=== PATIENT | male | born 1965 | race Caucasian/White ===

== ENCOUNTER 2018-04-03 01:27 | Inpatient (IN) | payer OTHER ==
[2018-04-03 02:14] LABS: Urine Blood NEGATIVE (NEG); Urine Glucose NEGATIVE (NEG); Urine Protein NEGATIVE (NEG)
[2018-04-03 02:16] LABS: Absolute Lymphocytes (CBC) 0.6 K/uL (0.7-4.9); Absolute Monocytes 1.3 K/uL (0.1-1.3); Absolute Neutrophil 11.4 K/uL (1.8-8.0); Basophils % 0.1 % (0-1.3); Eosinophils % 1.6 % (0-4.4); Hematocrit 43.4 % (39.6-49.0); Lymphocytes % 4.4 % (15.3-44.8); MCH 34.1 pg (27.0-35.0); MPV 8.5 fL (7.6-11.3); Monocytes % 9.5 % (3.3-12.3); RBC Red Blood Cell Count 4.38 M/uL (4.33-5.43)
[2018-04-03] MEDS ORDERED: KETOROLAC 30 MG/ML INJ ONE (02:22)
[2018-04-03 02:29] LABS: Urine Bacteria <20 /HPF (NONE SEEN); Urine Culture Reflex Order NOT NEEDED; Urine RBC NONE SEEN /HPF (NONE SEEN)
[2018-04-03 02:36] LABS: ALT/SGPT 32 U/L (12-78); AST/SGOT 17 U/L (15-37); Albumin 3.9 g/dL (3.4-5.0); Alkaline Phosphatase 51 U/L (45-117); BUN Blood Urea Nitrogen 18 mg/dL (7-18); Bicarbonate 29 mmol/L (21-32); Bilirubin Direct 0.2 mg/dL (0-0.2); Glucose Level 116 mg/dL (74-106); Lipase 84 U/L (73-393); Potassium 3.4 mmol/L (3.5-5.1); Protein, Total 7.1 g/dL (6.4-8.2); Sodium Level 139 mmol/L (136-145)
--- NOTE | 2018-04-03 03:19 | EDPHYS ---
Physician Documentation [facility] Name: Mike Kaufman Age: 52 yrs Sex: Male : 1965 Arrival Date: 04/03/2018 Time: 01:30 Bed 6 Private MD: Cassius Vega ED Physician Marc Rascon HPI: 04/03 03:12 This 52 yrs old Male presents to ER via Ambulatory with complaints of gs Abdominal Pain. 03:12 The patient presents with abdominal pain in the right upper quadrant. Onset: The gs symptoms/episode began/occurred acutely, 2 day(s) ago. Associated signs and symptoms: Pertinent positives: nausea, Pertinent negatives: vomiting. The symptoms are described as sharp. Modifying factors: The symptoms are alleviated by nothing, the symptoms are aggravated by nothing. Severity of pain: At its worst the pain was severe in the emergency department the pain has improved mildly. sweeny er dx colitis, gb dilated no sludge no stones. Historical: - Allergies: 01:49 No Known Allergies; bb - Home Meds: 01:49 Effexor Oral [Active]; valsartan oral oral [Active]; rosuvastatin oral oral [Active]; bb Synthroid Oral [Active]; testosterone [Active]; - PMHx: 01:49 Hypertension; Hypothyroidism; bb - PSHx: 01:49 gastric sleeve; Appendectomy; back surgery x 2; Knee surgery; wrist surgery; hand bb surgery x 2; - Immunization history:: Adult Immunizations up to date. - Social history:: Smoking status: Patient/guardian denies using tobacco, Patient uses alcohol, occasionally. Patient/guardian denies using street drugs. - Ebola Screening: : No symptoms or risks identified at this time. ROS: 03:12 All other systems are negative. gs 03:12 Cardiovascular: Negative for chest pain. gs 03:12 Respiratory: Negative for pleurisy, shortness of breath. Exam: 03:12 Head/Face: Normocephalic, atraumatic. Eyes: Pupils equal round and reactive to light, gs extra-ocular motions intact. Lids and lashes normal. Conjunctiva and sclera are non-icteric and not injected. Cornea within normal limits. Periorbital areas with no swelling, redness, or edema. ENT: Nares patent. No nasal discharge, no septal abnormalities noted. Tympanic membranes are normal and external auditory canals are clear. Oropharynx with no redness, swelling, or masses, exudates, or evidence of obstruction, uvula midline. Mucous membranes moist. Neck: Trachea midline, no thyromegaly or masses palpated, and no cervical lymphadenopathy. Supple, full range of motion without nuchal rigidity, or vertebral point tenderness. No Meningismus. Chest/axilla: Normal chest wall appearance and motion. Nontender with no deformity. No lesions are appreciated. Cardiovascular: Regular rate and rhythm with a normal S1 and S2. No gallops, murmurs, or rubs. Normal PMI, no JVD. No pulse deficits. Respiratory: Lungs have equal breath sounds bilaterally, clear to auscultation and percussion. No rales, rhonchi or wheezes noted. No increased work of breathing, no retractions or nasal flaring. Back: No spinal tenderness. No costovertebral tenderness. Full range of motion. Skin: Warm, dry with normal turgor. Normal color with no rashes, no lesions, and no evidence of cellulitis. MS/ Extremity: Pulses equal, no cyanosis. Neurovascular intact. Full, normal range of motion. Neuro: Awake and alert, GCS 15, oriented to person, place, time, and situation. Cranial nerves II-XII grossly intact. Motor strength 5/5 in all extremities. Sensory grossly intact. Cerebellar exam normal. Normal gait. 03:12 Constitutional: The patient appears alert, awake, uncomfortable. 03:12 Abdomen/GI: Palpation: moderate abdominal tenderness, in the epigastric area and right upper quadrant. 03:25 ECG was reviewed by the Attending Physician. Vital Signs: 01:49 BP 159 / 93; Pulse 63; Resp 18 S; Temp 98.5(O); Pulse Ox 97% on R/A; Weight 102.06 kg bb (R); Height 5 ft. 11 in. (180.34 cm) (R); Pain 8/10; 03:15 BP 120 / 72; Pulse 56; Resp 18; Pulse Ox 94% on R/A; lp1 04:15 BP 124 / 83; Pulse 56; Resp 18; Pulse Ox 99% on R/A; Pain 1/10; lp1 01:49 Body Mass Index 31.38 (102.06 kg, 180.34 cm) MDM: 01:53 Patient medically screened. 03:12 Differential diagnosis: cholecystitis, gastritis, non-specific abd pain, pancreatitis. Data reviewed: vital signs, nurses notes. Response to treatment: the patient's symptoms have markedly improved after treatment, and as a result, I will admit patient, per pt request as pain has been intractable. 04/03 01:58 Order name: Basic Metabolic Panel; Complete Time: 03:10 04/03 01:58 Order name: CBC with Diff; Complete Time: 02:24 04/03 01:58 Order name: Hepatic Function; Complete Time: 03:10 04/03 01:58 Order name: Lipase; Complete Time: 03:10 04/03 01:58 Order name: Urine Microscopic Only; Complete Time: 03:10 04/03 02:11 Order name: Urine Dipstick--Ancillary (enter results) pa 04/03 01:58 Order name: IV Saline Lock; Complete Time: 02:07 04/03 01:58 Order name: Labs collected and sent; Complete Time: 02:07 04/03 02:12 Order name: Urine Dipstick-Ancillary; Complete Time: 02:24 [facility] 04/03 02:33 Order name: EKG; Complete Time: 02:34 04/03 03:23 Order name: CONS Physician Consult [facility] 04/03 03:23 Order name: Hepatobiliary System W/ Ph [facility] 04/03 03:23 Order name: Abdomen Exam Limited [facility] 04/03 01:58 Order name: Urine Dipstick-Ancillary (obtain specimen); Complete Time: 02:07 04/03 02:33 Order name: EKG - Nurse/Tech; Complete Time: 02:57 EC:25 Rate is 59 beats/min. Rhythm is regular. AR interval is normal. No Q waves. T waves are gs Normal. No ST changes noted. Clinical impression: Sinus bradycardia. Interpreted by me. Administered Medications: 02:23 Drug: TORadol 15 mg Route: IVP; Site: left forearm; lp1 03:22 Follow up: Response: Pain is decreased lp1 Disposition: 04/03/18 03:18 Hospitalization ordered by Marcello Fitzpatrick for Observation. Preliminary diagnosis is Right upper quadrant abdominal tenderness. - Bed requested for Telemetry/MedSurg (observation). - Status is Observation. lp1 - Condition is Stable. - Problem is new. - Symptoms have improved. UTI on Admission? No Signatures: Dispatcher [employer] EDMS Esperanza Hopkins RN RN Dagmar Kramer, RN RN Drea Modi, KENIA RN lp1 Marc Rascon MD MD gs Corrections: (The following items were deleted from the chart) 04:03 03:18 Hospitalization Ordered by Marcello Fitzpatrick MD for Observation. Preliminary mw diagnosis is Right upper quadrant abdominal tenderness. Bed requested for Telemetry/MedSurg (observation). Status is Observation. Condition is Stable. Problem is new. Symptoms have improved. UTI on Admission? No. 04:32 04:03 04/03/2018 03:18 Hospitalization Ordered by Marcello Fitzpatrick MD for Observation. lp1 Preliminary diagnosis is Right upper quadrant abdominal tenderness. Bed requested for Telemetry/MedSurg (observation). Status is Observation. Condition is Stable. Problem is new. Symptoms have improved. UTI on Admission? No.
--- NOTE | 2018-04-03 03:19 | ER ---
Nurse's Notes [facility] Name: Mike Kaufman Age: 52 yrs Sex: Male : 1965 Arrival Date: 04/03/2018 Time: 01:30 Bed 6 Private MD: Cassius Vega Diagnosis: Right upper quadrant abdominal tenderness Presentation: 04/03 01:43 Presenting complaint: Patient states: he was seen at [place] ED yesterday and diagnosed bb with a "dilated" gallbladder and told to f/u with a surgeon but the pain is getting worse he cannot get comfortable he has had 3 episodes of this pain in the last 6 weeks. Transition of care: patient was not received from another setting of care. Onset of symptoms was February 2018. Risk Assessment: Do you want to hurt yourself or someone else? Patient reports no desire to harm self or others. Initial Sepsis Screen: Does the patient meet any 2 criteria? No. Patient's initial sepsis screen is negative. Does the patient have a suspected source of infection? No. Patient's initial sepsis screen is negative. Care prior to arrival: None. 01:43 Method Of Arrival: Ambulatory bb 01:43 Acuity: JIAN 3 bb Historical: - Allergies: 01:49 No Known Allergies; bb - Home Meds: 01:49 Effexor Oral [Active]; valsartan oral oral [Active]; rosuvastatin oral oral [Active]; bb Synthroid Oral [Active]; testosterone [Active]; - PMHx: 01:49 Hypertension; Hypothyroidism; bb - PSHx: 01:49 gastric sleeve; Appendectomy; back surgery x 2; Knee surgery; wrist surgery; hand bb surgery x 2; - Immunization history:: Adult Immunizations up to date. - Social history:: Smoking status: Patient/guardian denies using tobacco, Patient uses alcohol, occasionally. Patient/guardian denies using street drugs. - Ebola Screening: : No symptoms or risks identified at this time. Screenin:54 Abuse screen: Denies threats or abuse. Denies injuries from another. Nutritional lp1 screening: No deficits noted. Tuberculosis screening: No symptoms or risk factors identified. Fall Risk None identified. Assessment: 01:51 General: Appears uncomfortable, Behavior is calm, cooperative, appropriate for age. lp1 Pain: Complains of pain in epigastric area Pain radiates to back Pain currently is 7 out of 10 on a pain scale. Quality of pain is described as sharp, Pain began 1 day ago. Neuro: Level of Consciousness is awake, alert, obeys commands, Oriented to person, place, time, situation. Cardiovascular: Patient's skin is warm and dry. Respiratory: Respiratory effort is even, unlabored, Breath sounds are clear bilaterally. GI: Abdomen is non-distended, Bowel sounds present X 4 quads. Reports upper abdominal pain. : No signs and/or symptoms were reported regarding the genitourinary system. EENT: No signs and/or symptoms were reported regarding the EENT system. Derm: Skin is pink, warm \\T\\ dry. Musculoskeletal: Circulation, motion, and sensation intact. 03:15 Reassessment: Patient is alert, oriented x 3, equal unlabored respirations, skin lp1 warm/dry/pink. Patient states feeling better. Patient states symptoms have improved. 04:10 Reassessment: Patient is alert, oriented x 3, equal unlabored respirations, skin lp1 warm/dry/pink. Dr. Infante at bedside to discuss plan of care with patient and . Vital Signs: 01:49 BP 159 / 93; Pulse 63; Resp 18 S; Temp 98.5(O); Pulse Ox 97% on R/A; Weight 102.06 kg bb (R); Height 5 ft. 11 in. (180.34 cm) (R); Pain 8/10; 03:15 BP 120 / 72; Pulse 56; Resp 18; Pulse Ox 94% on R/A; lp1 04:15 BP 124 / 83; Pulse 56; Resp 18; Pulse Ox 99% on R/A; Pain 1/10; lp1 01:49 Body Mass Index 31.38 (102.06 kg, 180.34 cm) ED Course: 01:30 Patient arrived in ED. es 01:32 Cassius Vega MD is Private Physician. es 01:35 Marc Rascon MD is Attending Physician. gs 01:45 Triage completed. bb 01:49 Arm band placed on Patient placed in an exam room, on a stretcher, on pulse oximetry. bb Family accompanied patient. 01:50 Drea Modi RN is Primary Nurse. lp1 01:54 Patient has correct armband on for positive identification. Bed in low position. Pulse lp1 ox on. NIBP on. 02:07 Missed attempt(s): 20 gauge in right antecubital area. Inserted saline lock: 20 gauge lp1 in left forearm, using aseptic technique. 02:58 EKG done, by ED staff, reviewed by Marc Rascon MD. cc 03:18 Marcello Fitzpatrick MD is Hospitalizing Provider. gs 03:22 No provider procedures requiring assistance completed. Patient admitted, IV remains in lp1 place. Administered Medications: 02:23 Drug: TORadol 15 mg Route: IVP; Site: left forearm; lp1 03:22 Follow up: Response: Pain is decreased lp1 Outcome: 03:18 Decision to Hospitalize by Provider. gs 04:20 Condition: stable lp1 04:20 Instructed on the need for admit. 04:27 Admitted to Med/surg via wheelchair, room 205, with chart, Report called to May Wiggins LVN 04:32 Patient left the ED. lp1 Signatures: Bailey Aguilar Brenda, RN RN Abbey Bustos Drea Modi, KENIA RN lp1 Marc Rascon MD MD
--- NOTE | 2018-04-03 04:27 | P.HP ---
Certification for Inpatient Patient admitted to: Observation With expected LOS: <2 Midnights Practitioner: I am a practitioner with admitting privileges, knowledge of patient current condition, hospital course, and medical plan of care. Services: Services provided to patient in accordance with Admission requirements found in Title 42 Section 412.3 of the Code of Federal Regulations Patient History Date of Service: 04/03/18 Reason for admission: abdominal pain History of Present Illness: Mr Kaufman is a 52 years old male with history of HTN, S/P briatric surgery, he lose 70 pounds since so, came to ED complaining of abdominal pain. This is his third episode, starting with his first one about 6 weeks ago. Yesterday he had his second episode, he was evaluated at [facility], CT abd/pelvis reported distended gallbladder (12 mm) with signs of enteritis. He has had nausea but not vomiting associated with his symptoms. Tramadol yesterday subsided the pain , but last night did not work. He denied fever but had chills. No diarrhea. The pain is located with RUQ, 10/10 of intensity, colicky like, radiated to RLQ. In ED lab work shows leukocytosis 13.5K, liver function WNL, no fever. Allergies No Known Allergies Allergy (Unverified 04/03/18 04:06) - Past Medical/Surgical History -: HTN -: bariatric surgery -: knee -: back -: hand -: appendectomy - Family History Family History: Reviewed- Non-Contributory - Social History Smoking Status: Never smoker Alcohol use: Yes CD- Drugs: No Place of Residence: Home Review of Systems 10-point ROS is otherwise unremarkable Physical Examination - Physical Exam General: Alert, In no apparent distress HEENT: Atraumatic, PERRLA, Mucous membr. moist/pink, EOMI, Sclerae nonicteric Neck: Supple, 2+ carotid pulse no bruit, No LAD, Without JVD or thyroid abnormality Respiratory: Clear to auscultation bilaterally, Normal air movement Cardiovascular: Regular rate/rhythm, Normal S1 S2 Gastrointestinal: Normal bowel sounds, Tenderness (RUQ) Musculoskeletal: No tenderness Integumentary: No rashes Neurological: Normal speech, Normal strength at 5/5 x4 extr, Normal tone, Normal affect Lymphatics: No axilla or inguinal lymphadenopathy - Studies Laboratory Data (last 24 hrs) 04/03/18 01:49: WBC 13.5 H, Hgb 15.0, Hct 43.4, Plt Count 218 04/03/18 01:49: Sodium 139, Potassium 3.4 L, BUN 18, Creatinine 0.80, Glucose 116 H, Total Bilirubin 1.0, AST 17, ALT 32, Alkaline Phosphatase 51, Lipase 84 Assessment and Plan - Problems (Diagnosis) (1) HTN (hypertension) Current Visit: Yes Status: Acute Qualifiers: Hypertension type: essential hypertension Qualified Code(s): I10 - Essential (primary) hypertension (2) Abdominal pain Current Visit: Yes Status: Acute Qualifiers: Abdominal location: right upper quadrant Qualified Code(s): R10.11 - Right upper quadrant pain - Plan The patient will be admitted to the hospital due to abdominal pain. He has leukocytosis but no fever. CT abd[facility]pelvis from [facility] consistent with distended gallbladder, also signs of enteritis. Will order Abd US, HIDA scan to R/O cholecysistitis. Start empiric IV Cipro and Flagyl. Consult Dr Mcmullen for evaluation and recommendations. Will keep the patient NPO. - Advance Directives Does patient have a Living Will: No Does patient have a Durable POA for Healthcare: No - Code Status/Comfort Care Code Status Assessed: Yes Code Status: Full Code
[2018-04-03] MEDS ORDERED: ACETAMINOPHEN 500 MG TAB PO PRN (04:32)
[2018-04-03] MEDS: NA CHLORIDE 0.9% 1,000 ML IV SCH ×2 (05:47→17:03)
--- NOTE | 2018-04-03 06:49 | EKG ---
Test Date: 2018-04-03 Test Time: 02:54:12 Nuclear Medicine Physician: MELANIE MEASUREMENT RESULTS: Intervals: Rate: 59 KS: 166 QRSD: 104 QT: 442 QTc: 437 [place]: P: 53 KS: 166 QRS: 15 T: 10 INTERPRETIVE STATEMENTS: Sinus bradycardia Otherwise normal ECG Compared to ECG 01/15/2005 01:28:00 Sinus rhythm no longer present Electronically Signed On 04-03-18 06:48:47 CDT by Darek Miller
[2018-04-03] MEDS: KETOROLAC 30 MG/ML INJ IV PRN ×3 (08:11→20:08)
[2018-04-03] MEDS: ONDANSETRON 4 MG/2 ML VIAL IV PRN ×2 (08:12→22:32)
--- NOTE | 2018-04-03 09:40 | RAD REPORT ---
EXAM DESCRIPTION: US - Abdomen Exam Limited - 04/03/2018 7:56 am CLINICAL HISTORY: Abdominal pain. COMPARISON: None. FINDINGS: The gallbladder contains a large amount of sludge. The gallbladder wall is thickened measu ring 8 millimeters. There is equivocal pericholecystic fluid The common bile duct is normal caliber. The biliary tree is normal caliber. IMPRESSION: Marked amount of gallbladder sludge Thickened gallbladder wall suspicious for acute cholecystitis
[2018-04-03] MEDS: CIPROFLOXACIN 400mg IV 400 MG/200 ML BAG IV SCH ×2 (10:25→20:08)
[2018-04-03] MEDS: METRONIDAZOLE 500mg IVPB 500 MG/100 ML BAG IV SCH ×2 (10:25→17:03)
--- NOTE | 2018-04-03 10:47 | RAD REPORT ---
EXAM DESCRIPTION: NM - Hepatobiliary System Imagin - 04/03/2018 10:30 am CLINICAL HISTORY: Right upper quadrant pain and tenderness COMPARISON: Ultrasound April 03 TECHNIQUE: The patient was administered 6.5 mCi Tc99m Choletec . Imaging of the right upper quadrant was performed initially for up to 60 minutes and then continued up to 3.5 hours after initial radiop harmaceutical administration. FINDINGS: There is homogeneous uptake of radiopharmaceutical throughout the liver. There is no delay in visualization of the biliary tree or duodenum. Gallbladder never visualized over the course of the examination. Ultrasound showed the gallbladder fi lled with sludge. IMPRESSION: Nonvisualization of the gallbladder likely due to the gallbladder packed with large ilia tity of sludge. Likelihood of nonvisualization due to acute cholecystitis felt to be low. No delay in visualization of the liver parenchyma, biliary tree or duodenum. Ejection fraction is . Patient reported no pre-procedure pain, and no pain during or subsequent to synthetic CCK infusion.
--- NOTE | 2018-04-03 13:09 | PN ---
Date of Progress Note: 04/03/2018 Subjective: Patient seen and examined. Chart reviewed and case discussed with RN. The patient states his pain is significantly better, however not completely resolved. No nausea or vomiting. Review of Systems: Negative except for above. Medications: List reviewed. Physical Examination: Vital Signs: Temperature 98.7, heart rate 57, blood pressure 133/81, respirations 18, O2 saturation 98% on room air. General: Awake, alert, oriented x3. Some mild distress. Obese male. BMI 32.2. CV: S1, S2. No murmurs. Regular rate and rhythm. Peripheral pulses present. Respiratory: Clear to auscultation bilaterally. No wheezing. No stridor. No use of accessory muscles. Gastrointestinal: Abdomen is soft. Tenderness to palpation of the right upper quadrant. Some voluntary guarding. No rigidity. No palpable masses. Bowel sounds positive. Extremities: No clubbing, cyanosis, or edema. Neurologic: Nonfocal. Laboratory Data: Sodium 139, potassium 3.4, chloride 104, CO2 of 29. BUN 18, creatinine 0.8, glucose 116, calcium 8.3, total bilirubin 1. AST 17, ALT 32. WBC 13.5, H and H 15 and 43.4, platelets 218. Diagnostic Data: Abdominal ultrasound shows marked amount of gallbladder sludge , thickened gallbladder wall suspicious for acute cholecystitis. HIDA scan did not visualize the gallbladder due to large amount of sludge, likelihood of nonvisualization due to acute cholecystitis felt to be low. No delay in visualization of the liver parenchyma, biliary tree, or duodenum. No comment on ejection fraction has been made on the report. We will discuss with radiologist. Assessment And Plan: A 52-year-old male with; 1. Right upper quadrant abdominal pain, possible cholecystitis. We will discuss ejection fraction from HIDA scan with radiologist. Report does not have any mention of the ejection fraction. Dr. Mcmullen has been consulted. We will continue with IV fluids and IV antibiotics. 2. Essential hypertension, stable. 3. Obesity, body mass index 32.2. 4. Gastrointestinal and deep venous thrombosis prophylaxis with PPI and SCDs. ADDENDUM: spoke with Dr. Mcmullen. Patients HIDA scan discussed. Will go for surgery in am to have gallbladder removed. /MODL Voice ID: [id number] Report ID: [id number] MTDD
[2018-04-03] MEDS: MORPHINE 2 MG/ML SYR IV PRN (22:32)
[2018-04-04] MEDS: NA CHLORIDE 0.9% 1,000 ML IV SCH ×3 (01:00→21:23)
[2018-04-04] MEDS: METRONIDAZOLE 500mg IVPB 500 MG/100 ML BAG IV SCH ×3 (01:12→16:42)
[2018-04-04] MEDS: KETOROLAC 30 MG/ML INJ IV PRN ×2 (01:49→21:35)
[2018-04-04] MEDS: MORPHINE 2 MG/ML SYR IV PRN ×2 (03:43→08:06)
[2018-04-04] MEDS: ONDANSETRON 4 MG/2 ML VIAL IV PRN ×2 (03:48→21:34)
[2018-04-04 04:59] LABS: Absolute Lymphocytes (CBC) 0.6 K/uL (0.7-4.9); Absolute Monocytes 1.4 K/uL (0.1-1.3); Absolute Neutrophil 14.2 K/uL (1.8-8.0); Basophils % 0.2 % (0-1.3); Hematocrit 41.1 % (39.6-49.0); Lymphocytes % 3.7 % (15.3-44.8); MCH 34.4 pg (27.0-35.0); MCV 98.8 fL (80-100); MPV 8.8 fL (7.6-11.3); Monocytes % 8.3 % (3.3-12.3); RBC Red Blood Cell Count 4.16 M/uL (4.33-5.43)
[2018-04-04 05:22] LABS: Albumin 3.4 g/dL (3.4-5.0); Potassium 3.5 mmol/L (3.5-5.1); Protein, Total 6.9 g/dL (6.4-8.2)
[2018-04-04 05:39] LABS: Blood Morphology Comment NOT SEEN (NOT SEEN); Platelet Estimate ADEQ; Urine White Blood Cell Casts OK
[2018-04-04] MEDS: LEVOTHYROXINE SOD 0.025 MG TAB PO SCH (05:45)
[2018-04-04] MEDS: LEVOTHYROXINE SOD 0.112 MG TAB PO SCH (05:45)
[2018-04-04] MEDS: CIPROFLOXACIN 400mg IV 400 MG/200 ML BAG IV SCH ×2 (08:09→21:22)
[2018-04-04] MEDS: ROSUVASTATIN 10 MG TAB PO SCH (09:00)
[2018-04-04] MEDS: VALSARTAN 80 MG TAB PO SCH (09:00)
[2018-04-04] MEDS: hydroCHLOROthiazide 25 MG TAB PO SCH (09:00)
[2018-04-04] MEDS: VENLAFAXINE HCL XR 75 MG CAP PO SCH (09:00)
[2018-04-04] MEDS ORDERED: HOME MED 1 EA UNK (Valsartan/Hydrochlorothiazide [Valsartan-Hctz 320-25 Mg Tab] 1 TAB) PO SCH (09:00)
[2018-04-04] MEDS ORDERED: PROPOFOL 200 MG/20 ML VIAL IV ONE (10:03)
[2018-04-04] MEDS ORDERED: GLYCOPYRROLATE 0.2 MG/ML SYR ONE (10:04)
[2018-04-04] MEDS ORDERED: MIDAZOLAM HCL 2 MG/2 ML INJ ONE (10:04)
[2018-04-04] MEDS ORDERED: LIDOCAINE 2% MPF 5 ML VIAL ONE (10:04)
[2018-04-04] MEDS ORDERED: ROCURONIUM 50 MG/5 ML VIAL IV ONE (10:05)
[2018-04-04] MEDS ORDERED: FENTANYL CITR 250 MCG/5 ML ONE (10:05)
[2018-04-04] MEDS ORDERED: Ringers Lactate 1,000 ML IV ONE (11:10)
[2018-04-04] MEDS ORDERED: MEPERIDINE HCL 25 MG/0.5 ML ONE (12:04)
--- NOTE | 2018-04-04 12:14 | P.PN ---
Subjective Date of Service: 04/04/18 Chief Complaint: abdominal pain severe moderate RUQ pain and tenderness Physical Examination - Vital Signs Temperature: 99.1 F Blood Pressure: 119/55 Pulse: 78 Respirations: 18 Pulse Ox (%): 91 - Physical Exam General: Alert, In no apparent distress HEENT: Atraumatic, PERRLA, EOMI Neck: Supple, JVD not distended Respiratory: Clear to auscultation bilaterally, Normal air movement Cardiovascular: Regular rate/rhythm, Normal S1 S2 Gastrointestinal: Normal bowel sounds, Tenderness (RUQ) Musculoskeletal: No tenderness Integumentary: No rashes Neurological: Normal speech, Normal tone, Normal affect Lymphatics: No axilla or inguinal lymphadenopathy - Studies Laboratory Data (last 24 hrs) 04/04/18 04:41: Sodium 139, Potassium 3.5, BUN 20 H, Creatinine 1.00, Glucose 103, Total Bilirubin 1.0, AST 13 L, ALT 25, Alkaline Phosphatase 50 04/04/18 04:41: WBC 16.3 H D, Hgb 14.3, Hct 41.1, Plt Count 198 Medications List Reviewed: Yes Assessment And Plan - Current Problems (Diagnosis) (1) Cholecystitis Current Visit: Yes Status: Acute (2) HTN (hypertension) Onset Date: 04/03/18 Current Visit: Yes Status: Chronic Qualifiers: Hypertension type: essential hypertension Qualified Code(s): I10 - Essential (primary) hypertension (3) Gallstone Current Visit: Yes Status: Acute Qualifiers: Cholecystitis presence: with cholecystitis Cholecystitis acuity: acute Biliary obstruction: without biliary obstruction Qualified Code(s): K80.00 - Calculus of gallbladder with acute cholecystitis without obstruction - Plan --Cont IV ABX --Pain meds --NPO --Surgery today --Cons General Surgery
--- NOTE | 2018-04-04 12:29 | P.BOP ---
Preoperative diagnosis: acute cholecystitis, symptomatic cholelithiasis, Postoperative diagnosis: same Primary procedure: Laparoscopic cholecystectomy Blueprint Duplicator: MITZI GRAHAM ([employer] SUPER[employer]) Estimated blood loss: <50cc Specimen: gb Findings: thickened gb wall with necrotic tissue patches Anesthesia: General Complications: None Drain(s): JOSHAU drain Transferred to: Recovery Room Condition: Good
[2018-04-04] MEDS: MEPERIDINE HCL 50 MG/ML AMP ONE ×2 (12:36→12:44)
--- NOTE | 2018-04-04 14:30 | P.CNS ---
Date of Consult: 04/03/18 Reason for Consult: cholecystitis Chief Complaint: abdominal pain History of Present Illness: 52 y/o male with eigastric and RUW pain for 3 days duration associated with nause, vomit, bloating. Pt has this same episode sevaral times in kathleen last month. He even went to a ER recently and was diagnosed with enteritis. Allergies No Known Allergies Allergy (Unverified 04/03/18 05:19) Home Medications: Ergocalciferol (Vitamin D2) [Vitamin D2] 50,000 units PO DAILY 04/03/18 Levothyroxine [Synthroid*] 0.137 mg PO DAILY 04/03/18 Rosuvastatin Calcium 10 mg PO DAILY 04/03/18 Testosterone Cypionate [Testone Cik] 1 tab PO EVERY 7TH DAY 04/03/18 Valsartan/Hydrochlorothiazide [Valsartan-Hctz 320-25 mg Tab] 1 tab PO DAILY Venlafaxine HCl [Venlafaxine HCl ER] 150 mg PO DAILY 04/03/18 - Past Medical/Surgical History Diabetic: No -: HTN -: Hycholestrol -: bariatric surgery -: knee -: back -: hand -: appendectomy - Social History Alcohol use: Yes CD- Drugs: No Caffeine use: Yes Place of Residence: Home Review of Systems General: Malaise, As per HPI Eyes: Unremarkable ENT: Unremarkable Respiratory: Unremarkable Cardiovascular: Unremarkable Gastrointestinal: Nausea, Vomiting, Abdominal Pain, Distention, Melena (no), Hematochezia (no), As per HPI Genitourinary: Unremarkable Musculoskeletal: Unremarkable Integumentary: Unremarkable Neurological: Unremarkable Physical Examination Temp Pulse Resp BP Pulse Ox 99.8 F 74 16 111/53 L 91 04/04/18 12:52 04/04/18 12:52 04/04/18 12:52 04/04/18 12:52 04/04/18 12:13 General: Alert, Oriented x3, Cooperative HEENT: PERRLA, EOMI, Sclerae nonicteric Neck: Supple Respiratory: Normal air movement Cardiovascular: No edema Gastrointestinal: Tenderness (+ [place]) Integumentary: No rashes, No breakdown, No erythema, No warmth, No cyanosis Neurological: Normal tone Laboratory Data (last 24 hrs) 04/04/18 04:41: Sodium 139, Potassium 3.5, BUN 20 H, Creatinine 1.00, Glucose 103, Total Bilirubin 1.0, AST 13 L, ALT 25, Alkaline Phosphatase 50 04/04/18 04:41: WBC 16.3 H D, Hgb 14.3, Hct 41.1, Plt Count 198 Imagings Data: u/s reviewed. official still pending Conclusions/Impression: Acute cholecystitis, symptomatic cholelithiasis, obesity, s/p gastric sleeve Pt fully explained BAR of laparoscopic possible open cholecystectomy which include but not limited to infection, bleeding, damage to adjacent structures, bile leak , choledocholithiasis, MT even . NPO IV abx
[2018-04-04] MEDS ORDERED: MORPHINE 4 MG/ML SYR IV PRN (14:50)
[2018-04-04] MEDS ORDERED: HYDROCODONE/APAP 7.5/325 MG TAB PO PRN (14:50)
--- NOTE | 2018-04-04 18:54 | OP ---
Date of Procedure: 04/04/2018 Surgeon: Bertrand Mcmullen MD Press Writer: Margaret Chicas. Preoperative Diagnoses: Acute cholecystitis, symptomatic cholelithiasis, intractable right upper walt drant pain, history of gastric stapling, morbid obesity. Postoperative Diagnoses: Acute cholecystitis, symptomatic cholelithiasis, intractable right upper qu adrant pain, history of gastric stapling, morbid obesity. Procedure: Laparoscopic cholecystectomy. Estimated Blood Loss: Less than 50 cc. Specimen: Gallbladder. Findings: Thickened gallbladder wall with necrotic tissue patches. Anesthesia: General plus local. Drain: JOSHUA drain #10. Indications: This is a case of a 52-year-old patient with intractable right upper quadrant pain, his tory of gastric bypass in the past, last year on and off abdominal pain in epigastric right upper walt drant until the last hour the pain got worse. He came to the ER. Workup was done showing acute chol ecystitis, symptomatic cholelithiasis, and the patient fully explained the need for laparoscopic, pos sible open cholecystectomy with benefits, alternatives, and risks including, but not limited to infec tion, bleeding, damage to adjacent structures, anesthesia complication, choledocholithiasis, bile monika k, pancreatitis, AL, and even . He also understands this may not relieve his symptoms. He migh t need more than one surgical intervention. He understood. Signed a consent. Description Of Procedure: The patient was brought to the operating room, placed in supine position. Anesthesia was done without complication. Abdominal area was prepped and draped in a sterile fashio n. Marcaine 0.5% injected for local anesthetic followed by sharp incision of the skin in the periumb ilical region. Incision was carried down to fascia, which was opened under direct vision. Peritoneu m was encountered, opened under direct vision. Vicryl #1 placed inside the fascia. Bailey trocar wa s carefully introduced. Pneumoperitoneum was obtained. I placed 3 more trocars, 5 mm each one of em, in the right upper quadrant. Gallbladder is distended with omental adhesions to it. Omental adh esions were removed. We noticed some small patches of necrotic tissue present. Gallbladder is very distended so have to be decompressed with an Endo needle under direct visualization. This allowed me to put a grasper in the fundus of the gallbladder to obliterate the opening and then another grasper in the infundibulum retracing the gallbladder in the inferolateral fashion exposing the triangle of Calot obtaining critical view of safety. Cystic duct and cystic artery were clearly isolated free ci rcumferentially and a connection between those and the gallbladder was clearly identified. I proceed ed to ligate those by using at least 3 clips proximal, 1 clip distal, then ligation in middle. Same was done with the cystic artery. A small cystic branch was also ligated. The hepatic arteries and c ommon bile duct were protected at all times. Gallbladder was removed from liver using Bovie cauteriz er and removed from abdominal cavity using an EndoCatch through the umbilical incision. The area was inspected once again due to the infection and inflammation in that area. A JOSHUA drain was left in jillian ce exiting through one of the trocar sites, secured in place with 3-0 nylon. We checked the area and clips. There were no bile leak and no bleeding. At that moment, I proceeded to remove the trocars under direct vision. Deflated pneumoperitoneum. Closed the fascia with #1 Vicryl. Irrigated subcut aneous tissue, closed that with 3-0 chromic, and then the skin with tasha. Sponge count and instru ment counts were correct. The patient tolerated the procedure well. The patient was sent to recover y in stable condition. YEN/MELISSA Voice ID: [id number] Report ID: [id number]
[2018-04-05] MEDS: METRONIDAZOLE 500mg IVPB 500 MG/100 ML BAG IV SCH ×2 (00:47→10:27)
[2018-04-05] MEDS: LEVOTHYROXINE SOD 0.112 MG TAB PO SCH (05:30)
[2018-04-05] MEDS: LEVOTHYROXINE SOD 0.025 MG TAB PO SCH (05:31)
[2018-04-05] MEDS: hydroCHLOROthiazide 25 MG TAB PO SCH (09:00)
[2018-04-05] MEDS: VENLAFAXINE HCL XR 75 MG CAP PO SCH (09:00)
[2018-04-05] MEDS: VALSARTAN 80 MG TAB PO SCH (09:00)
[2018-04-05] MEDS: ROSUVASTATIN 10 MG TAB PO SCH (09:00)
[2018-04-05] MEDS: CIPROFLOXACIN 400mg IV 400 MG/200 ML BAG IV SCH (10:24)
[2018-04-05] MEDS: NA CHLORIDE 0.9% 1,000 ML IV SCH (11:11)
--- NOTE | 2018-04-05 12:19 | P.PN ---
Subjective Date of Service: 04/05/18 Chief Complaint: abdominal pain Patient seen and examined with RN at bedside. Chart reviewed. Case discussed with general surgery. Patient at this time complains of having some right upper quadrant pain. States that it is however much better than before. Has been ambulating and has been able to tolerate his diet well. Currently has not passed gas or has not had a bowel movement. Review of Systems General: As per HPI Physical Examination - Vital Signs Temperature: 97.7 F Blood Pressure: 103/67 Pulse: 57 Respirations: 12 Pulse Ox (%): 90 - Physical Exam General: Alert, In no apparent distress, Oriented x3 HEENT: Atraumatic, PERRLA, EOMI Neck: Supple, JVD not distended Respiratory: Clear to auscultation bilaterally, Normal air movement Cardiovascular: Regular rate/rhythm, Normal S1 S2 Gastrointestinal: Normal bowel sounds, Soft and benign, Non-distended, Tenderness Musculoskeletal: No tenderness Integumentary: No rashes Neurological: Normal speech, Normal tone, Normal affect Lymphatics: No axilla or inguinal lymphadenopathy - Studies Medications List Reviewed: Yes Assessment & Plan - Problems (Diagnosis) (1) Cholecystitis Current Visit: Yes Status: Acute Plan: RUQ pain with findings of acute cholecystitis -currently status post cholecystectomy with General Surgery POD# 1 -patient has gangrenous bladder. Continue patient's IV antibiotics for another 24-48 hr. -advance diet to clear liquid which patient tolerated well -repeat lab work tomorrow morning (2) HTN (hypertension) Onset Date: 04/03/18 Current Visit: Yes Status: Chronic Qualifiers: Hypertension type: essential hypertension Qualified Code(s): I10 - Essential (primary) hypertension Discharge Plan: Home Plan to discharge in: 24 Hours - Code Status/Comfort Care Code Status Assessed: Yes Critical Care: No
--- NOTE | 2018-04-05 14:42 | P.DS ---
Admission Date: 04/04/18 Discharge Date: 04/05/18 Disposition: ROUTINE DISCHARGE Discharge Condition: GOOD Reason for Admission: abdominal pain Brief History of Present Illness: 52 y/o male with eigastric and RUW pain for 3 days duration associated with nause, vomit, bloating. Pt has this same episode sevaral times in [place] last month. He even went to a ER recently and was diagnosed with enteritis. Vital Signs/Physical Exam: Temp Pulse Resp BP Pulse Ox 97.7 F 57 12 103/67 90 L 04/05/18 12:51 04/05/18 12:51 04/05/18 12:51 04/05/18 12:51 04/05/18 12:51 General: Alert, In no apparent distress, Oriented x3 HEENT: PERRLA, EOMI Neck: Supple Gastrointestinal: Soft and benign Integumentary: No erythema, No warmth, No cyanosis Neurological: Normal speech Other Physical/Emotional Findings: JOSHUA clear Laboratory Data at Discharge: WBC 16.3 K/uL (4.3-10.9) H D 04/04/18 04:41 Hgb 14.3 g/dL (13.6-17.9) 04/04/18 04:41 Hct 41.1 % (39.6-49.0) 04/04/18 04:41 Plt Count 198 K/uL (152-406) 04/04/18 04:41 Sodium 139 mmol/L (136-145) 04/04/18 04:41 Potassium 3.5 mmol/L (3.5-5.1) 04/04/18 04:41 BUN 20 mg/dL (7-18) H 04/04/18 04:41 Creatinine 1.00 mg/dL (0.55-1.3) 04/04/18 04:41 Glucose 103 mg/dL (74-106) 04/04/18 04:41 Total Bilirubin 1.0 mg/dL (0.2-1.0) 04/04/18 04:41 AST 13 U/L (15-37) L 04/04/18 04:41 ALT 25 U/L (12-78) 04/04/18 04:41 Alkaline Phosphatase 50 U/L (45-117) 04/04/18 04:41 Lipase 84 U/L (73-393) 04/03/18 01:49 Home Medications: Ergocalciferol (Vitamin D2) [Vitamin D2] 50,000 units PO DAILY 04/03/18 Levothyroxine [Synthroid*] 0.137 mg PO DAILY 04/03/18 Rosuvastatin Calcium 10 mg PO DAILY 04/03/18 Testosterone Cypionate [Testone Cik] 1 tab PO EVERY 7TH DAY 04/03/18 Valsartan/Hydrochlorothiazide [Valsartan-Hctz 320-25 mg Tab] 1 tab PO DAILY Venlafaxine HCl [Venlafaxine HCl ER] 150 mg PO DAILY 04/03/18 Ciprofloxacin HCl [Cipro 500 MG Tablet] 500 mg PO BID #12 tab 04/05/18 Codeine/APAP [Tylenol W/Codeine #3 tab] 1 tab PO Q4HP PRN #30 tab 04/05/18 New Medications: Ciprofloxacin HCl [Cipro 500 MG Tablet] 500 mg PO BID #12 tab Codeine/APAP [Tylenol W/Codeine #3 tab] 1 tab PO Q4HP PRN #30 tab PRN Reason: Pain Patient Discharge Instructions: Record JOSHUA drain q24h. May take shower tomorrow with dressing off. Diet: AHA Followup: Bertrand Mcmullen MD [ACTIVE - CAN ADMIT] - 1 Week
[2018-04-05 16:34] LABS: Absolute Lymphocytes (CBC) 0.9 K/uL (0.7-4.9); Absolute Monocytes 0.9 K/uL (0.1-1.3); Absolute Neutrophil 6.5 K/uL (1.8-8.0); Basophils % 0.3 % (0-1.3); Eosinophils % 4.5 % (0-4.4); Hematocrit 40.1 % (39.6-49.0); MCH 34.2 pg (27.0-35.0); MCV 99.4 fL (80-100); MPV 8.3 fL (7.6-11.3); Monocytes % 10.7 % (3.3-12.3); RBC Red Blood Cell Count 4.03 M/uL (4.33-5.43)
--- NOTE | 2018-04-11 15:57 | P.DS ---
Admission Date: 04/04/18 Discharge Date: 04/11/18 Disposition: ROUTINE DISCHARGE Discharge Condition: GOOD Reason for Admission: abdominal pain Consultations: Gen surgery - Problems (1) Cholecystitis Status: Acute (2) HTN (hypertension) Onset Date: 04/03/18 Status: Chronic Qualifiers: Hypertension type: essential hypertension Qualified Code(s): I10 - Essential (primary) hypertension Brief History of Present Illness: Mr Kaufman is a 52 years old male with history of HTN, S/P briatric surgery, he lose 70 pounds since so, came to ED complaining of abdominal pain. This is his third episode, starting with his first one about 6 weeks ago. Yesterday he had his second episode, he was evaluated at [facility], CT abd/pelvis reported distended gallbladder (12 mm) with signs of enteritis. He has had nausea but not vomiting associated with his symptoms. Tramadol yesterday subsided the pain , but last night did not work. He denied fever but had chills. No diarrhea. The pain is located with RUQ, 10/10 of intensity, colicky like, radiated to RLQ. In ED lab work shows leukocytosis 13.5K, liver function WNL, no fever. Hospital Course: Overall patient remained stable while here in the hospital Patient was initially admitted to the hospital for acute cholecystitis. Patient had a cholecystectomy done here in the hospital with Dr. Mcmullen improved well and discharged home under stable condition after the procedure. Vital Signs/Physical Exam: Temp Pulse Resp BP Pulse Ox 96.6 F L 57 12 126/71 95 04/05/18 16:00 04/05/18 16:00 04/05/18 16:00 04/05/18 16:00 04/05/18 16:00 General: Alert, In no apparent distress HEENT: Atraumatic, PERRLA, EOMI Neck: Supple, JVD not distended Respiratory: Clear to auscultation bilaterally, Normal air movement Cardiovascular: Regular rate/rhythm, Normal S1 S2 Gastrointestinal: Normal bowel sounds, No tenderness Musculoskeletal: No tenderness Integumentary: No rashes Neurological: Normal speech, Normal tone, Normal affect Lymphatics: No axilla or inguinal lymphadenopathy Other Physical/Emotional Findings: JOSHUA clear Laboratory Data at Discharge: WBC 8.7 K/uL (4.3-10.9) D 04/05/18 16:19 Hgb 13.8 g/dL (13.6-17.9) 04/05/18 16:19 Hct 40.1 % (39.6-49.0) 04/05/18 16:19 Plt Count 243 K/uL (152-406) D 04/05/18 16:19 Sodium 139 mmol/L (136-145) 04/04/18 04:41 Potassium 3.5 mmol/L (3.5-5.1) 04/04/18 04:41 BUN 20 mg/dL (7-18) H 04/04/18 04:41 Creatinine 1.00 mg/dL (0.55-1.3) 04/04/18 04:41 Glucose 103 mg/dL (74-106) 04/04/18 04:41 Total Bilirubin 1.0 mg/dL (0.2-1.0) 04/04/18 04:41 AST 13 U/L (15-37) L 04/04/18 04:41 ALT 25 U/L (12-78) 04/04/18 04:41 Alkaline Phosphatase 50 U/L (45-117) 04/04/18 04:41 Lipase 84 U/L (73-393) 04/03/18 01:49 Home Medications: Ergocalciferol (Vitamin D2) [Vitamin D2] 50,000 units PO DAILY 04/03/18 Levothyroxine [Synthroid*] 0.137 mg PO DAILY 04/03/18 Rosuvastatin Calcium 10 mg PO DAILY 04/03/18 Testosterone Cypionate [Testone Cik] 1 tab PO EVERY 7TH DAY 04/03/18 Valsartan/Hydrochlorothiazide [Valsartan-Hctz 320-25 mg Tab] 1 tab PO DAILY Venlafaxine HCl [Venlafaxine HCl ER] 150 mg PO DAILY 04/03/18 Ciprofloxacin HCl [Cipro 500 MG Tablet] 500 mg PO BID #12 tab 04/05/18 Codeine/APAP [Tylenol W/Codeine #3 tab] 1 tab PO Q4HP PRN #30 tab 04/05/18 Phenergan 25 mg PO Q6H PRN #10 04/05/18 New Medications: Ciprofloxacin HCl [Cipro 500 MG Tablet] 500 mg PO BID #12 tab Codeine/APAP [Tylenol W/Codeine #3 tab] 1 tab PO Q4HP PRN #30 tab PRN Reason: Pain Phenergan 25 mg PO Q6H PRN #10 PRN Reason: Nausea Patient Discharge Instructions: Record JOSHUA drain q24h. May take shower tomorrow with dressing off. Diet: AHA Followup: Bertrand Mcmullen MD [ACTIVE - CAN ADMIT] - 04/09/18 (Follow up in office on Monday. Call to schedule an appointment.)
== END 2018-04-05 17:37 | disposition home or self-care (01) | DRG 419 ==
LOC: ER 01:27 → ERHOLD 03:21 → 2ND 04:30 → OBSVTOIN 04-04 11:04
PROVIDERS: ADMIT Internal Medicine; ATTEND Family Medicine
PROC: 0FT44ZZ Resection of Gallbladder, Percutaneous Endoscopic Approach (ICD-10-PCS; principal; 2018-04-04 11:45)
DX: K80.00 Calculus of gallbladder with acute cholecystitis without obstruction (principal); I10 Essential (primary) hypertension; E03.9 Hypothyroidism, unspecified; Z68.32 Body mass index [BMI] 32.0-32.9, adult; E78.00 Pure hypercholesterolemia, unspecified; E66.01 Morbid (severe) obesity due to excess calories; Z98.84 Bariatric surgery status; K52.9 Noninfective gastroenteritis and colitis, unspecified
CPT/HCPCS: 36415; 76705; 78226; 80048; 80053; 80076; 81003; 81015; 83690; 85025; 88304; 93005; 96374; 99285; A9537; G0378; J0744; J2175; J2250; J2270; J2405; J7030